=== PATIENT | female | born 1960 | race Asian ===

== ENCOUNTER 2022-09-02 09:37 | Inpatient (IN) | payer MEDICAID, OTHER ==
[~2022-09-02] VITALS: Ht 157.5 cm; Wt 60.4 kg
[2022-09-02 10:47] LABS: Basophils # (auto) 0.1 10 ^3/uL (0-0.2); Basophils % (auto) 0.7 % (0.0-2.0); Eosinophils # (auto) 0.1 10 ^3/uL (0-0.8); Eosinophils % (auto) 0.5 % (0.0-7.0); Hematocrit 40.1 % (36.0-46.0); Hemoglobin 14.1 g/dL (12.2-16.2); Lymphocytes # (auto) 1.9 10 ^3/uL (0.4-5.4); Lymphocytes % (auto) 10.4 % (10.0-50.0); Mean Corpuscular Hemoglobin 31.7 pg (28.0-32.0); Mean Corpuscular Hgb Conc. 35.1 g/dL (32.0-36.0); Mean Corpuscular Volume 90.4 fL (80.0-100.0); Monocytes # (auto) 0.8 10 ^3/uL (0-1.3); Monocytes % (auto) 4.1 % (0.0-12.0); Neutrophils # (auto) 15.7 10 ^3/uL (1.6-8.6); Neutrophils % (auto) 84.3 % (37.0-80.0); Red Blood Cells 4.44 10^6/uL (4.0-5.20); Red Cell Distribution Width 13.1 % (11.8-14.3); White Blood Cell 18.6 10^3/uL (4.4-10.8)
[2022-09-02 11:18] LABS: Albumin 4.3 g/dL (3.4-5.0); Calcium 9.2 mg/dL (8.5-10.1); Potassium 3.9 mmol/L (3.5-5.1)
[2022-09-02 11:22] LABS: BUN/Creatinine Ratio 28.3; Bilirubin, Total 0.5 mg/dL (0.2-1.0); Total Protein 7.6 g/dL (6.4-8.2)
[2022-09-02] MEDS ORDERED: cefTRIAXone 1GM/50ML D5W 50 ML IV ONE (12:45)
[2022-09-02] MEDS ORDERED: SODIUM CHLORIDE 0.9% 1,000 ML IV ONE ×2 (12:45)
[2022-09-02] MEDS ORDERED: metroNIDAZOLE 500MG/100ML 100 ML IV ONE (12:45)
[2022-09-02] MEDS ORDERED: DOCUSATE SOD 100 MG CAP PO PRN (15:15)
[2022-09-02] MEDS ORDERED: ACETAMINOPHEN 325 MG TAB PO PRN (15:15)
[2022-09-02] MEDS ORDERED: HYDROcodone-ACET 5/325MG TAB PO PRN (15:15)
[2022-09-02] MEDS: MORPHINE SULFATE INJ 2 MG/ml SYRG IV PRN ×2 (20:31→23:56)
[2022-09-02] MEDS: metroNIDAZOLE 500MG/100ML 100 ML IV SCH (22:35)
[2022-09-02] MEDS: ONDANSETRON HCL 4 MG/2 ML VIAL IV PRN (23:55)
[2022-09-03] MEDS ORDERED: diphenhdrAMINE HCL 25 MG CAP PO ONE (01:15)
[2022-09-03] MEDS: ONDANSETRON HCL 4 MG/2 ML VIAL IV PRN ×4 (03:42→20:51)
[2022-09-03] MEDS: MORPHINE SULFATE INJ 2 MG/ml SYRG IV PRN ×4 (03:43→20:46)
[2022-09-03 06:31] LABS: Albumin 3.2 g/dL (3.4-5.0); Calcium 7.9 mg/dL (8.5-10.1); Potassium 3.5 mmol/L (3.5-5.1)
[2022-09-03 06:35] LABS: Bilirubin, Total 0.5 mg/dL (0.2-1.0); Total Protein 5.9 g/dL (6.4-8.2)
[2022-09-03] MEDS: metroNIDAZOLE 500MG/100ML 100 ML IV SCH ×2 (06:35→14:08)
[2022-09-03 07:13] LABS: Basophils # (auto) 0 10 ^3/uL (0-0.2); Basophils % (auto) 0.3 % (0.0-2.0); Eosinophils # (auto) 0.2 10 ^3/uL (0-0.8); Eosinophils % (auto) 1.1 % (0.0-7.0); Hematocrit 33.4 % (36.0-46.0); Hemoglobin 11.1 g/dL (12.2-16.2); Lymphocytes # (auto) 4.3 10 ^3/uL (0.4-5.4); Lymphocytes % (auto) 30.9 % (10.0-50.0); Mean Corpuscular Hemoglobin 30.5 pg (28.0-32.0); Mean Corpuscular Hgb Conc. 33.4 g/dL (32.0-36.0); Mean Corpuscular Volume 91.4 fL (80.0-100.0); Monocytes # (auto) 0.9 10 ^3/uL (0-1.3); Monocytes % (auto) 6.5 % (0.0-12.0); Neutrophils # (auto) 8.4 10 ^3/uL (1.6-8.6); Neutrophils % (auto) 61.2 % (37.0-80.0); Nucleated Red Blood Cells % 0.1 %; Red Blood Cells 3.65 10^6/uL (4.0-5.20); Red Cell Distribution Width 13.3 % (11.8-14.3); White Blood Cell 13.8 10^3/uL (4.4-10.8)
[2022-09-03] MEDS ORDERED: PANTOPRAZOLE 40 MG/10 ML VIAL INJ IV SCH (10:00)
[2022-09-03] MEDS ORDERED: SENNA 8.6 MG TAB PO PRN (15:00)
[2022-09-03] MEDS ORDERED: POLYETHYLENE GLYCOL 17 GM PWDR PO PRN (15:00)
[2022-09-03 15:09] VITALS: BP 111/52
[2022-09-03 20:00] VITALS: BP_SYST 124; BP_SYST 143; BP_DIAS 44; BP_DIAS 60
[2022-09-03] MEDS: diphenhdrAMINE HCL 25 MG CAP PO PRN (20:47)
[2022-09-03] MEDS: SENNA 8.6 MG TAB PO SCH (20:47)
[2022-09-03] MEDS: BETAMETHASONE DIPROP0.05% TOPICAL CREAM 15GM TOP SCH (21:09)
[2022-09-03] MEDS: AMOXICILLIN/CLAVUL 875 MG TAB PO SCH (21:12)
[2022-09-03 22:00] VITALS: BP 124/44
[2022-09-04] MEDS: MORPHINE SULFATE INJ 2 MG/ml SYRG IV PRN ×3 (00:55→20:20)
[2022-09-04 03:41] LABS: Urine Bacteria NONE SEEN /hpf (None Seen); Urine Blood TRACE /uL (Negative); Urine Specific Gravity 1.014 (1.001-1.035); Urine WBC 5 /hpf (0 - 5)
[2022-09-04] MEDS: diphenhdrAMINE HCL 25 MG CAP PO PRN ×3 (04:27→22:19)
[2022-09-04 05:00] VITALS: BP 105/39
[2022-09-04 07:24] LABS: Mean Corpuscular Hgb Conc. 35.2 g/dL (32.0-36.0); Mean Corpuscular Volume 90.8 fL (80.0-100.0); Red Blood Cells 3.75 10^6/uL (4.0-5.20); Red Cell Distribution Width 13.1 % (11.8-14.3); White Blood Cell 8.2 10^3/uL (4.4-10.8)
[2022-09-04 07:27] LABS: Basophils % (manual) 0 (0.0-2.0); Blast Cells 0; Metamyelocytes % 0; Myelocytes % 0; Promyelocytes % 0; Reactive Lymphocytes 0
[2022-09-04 07:41] LABS: Albumin 3.3 g/dL (3.4-5.0); Calcium 8.8 mg/dL (8.5-10.1); Potassium 3.8 mmol/L (3.5-5.1)
[2022-09-04 07:43] LABS: BUN/Creatinine Ratio 21.1
[2022-09-04 07:46] LABS: Bilirubin, Total 0.3 mg/dL (0.2-1.0); Total Protein 6.7 g/dL (6.4-8.2)
[2022-09-04 09:00] VITALS: BP 125/43
[2022-09-04] MEDS: AMOXICILLIN/CLAVUL 875 MG TAB PO SCH ×2 (09:59→22:19)
[2022-09-04] MEDS: POLYETHYLENE GLYCOL 17 GM PWDR PO SCH (09:59)
[2022-09-04] MEDS: BETAMETHASONE DIPROP0.05% TOPICAL CREAM 15GM TOP SCH (10:00)
[2022-09-04] MEDS ORDERED: BETA0.0534 EX (11:09)
[2022-09-04] MEDS ORDERED: ACET325T10 PO (11:09)
[2022-09-04] MEDS ORDERED: SENN-83 PO (11:14)
[2022-09-04] MEDS ORDERED: POLY335015 PO (11:14)
[2022-09-04] MEDS ORDERED: AUG875T PO (11:20)
[2022-09-04 13:00] VITALS: BP 138/62
[2022-09-04 15:24] LABS: Band Neutrophils % (manual) 4; Eosinophils % (manual) 1 (0-7); Lymphocytes % (manual) 57 (10.0-50.0); Monocytes % (manual) 6 (0-12)
[2022-09-04 16:44] VITALS: BP 110/51
[2022-09-04 22:00] VITALS: BP 135/62
[2022-09-04] MEDS: SENNA 8.6 MG TAB PO SCH (22:19)
[2022-09-05] MEDS: MORPHINE SULFATE INJ 2 MG/ml SYRG IV PRN ×2 (01:48→08:21)
[2022-09-05 05:00] VITALS: BP 127/52
[2022-09-05 06:11] LABS: Hematocrit 36.2 % (36.0-46.0); Hemoglobin 12.4 g/dL (12.2-16.2); Mean Corpuscular Hemoglobin 31.2 pg (28.0-32.0); Mean Corpuscular Hgb Conc. 34.3 g/dL (32.0-36.0); Mean Corpuscular Volume 91.1 fL (80.0-100.0); Red Blood Cells 3.98 10^6/uL (4.0-5.20); Red Cell Distribution Width 13.3 % (11.8-14.3); White Blood Cell 7.1 10^3/uL (4.4-10.8)
[2022-09-05 06:18] LABS: Band Neutrophils % (manual) 0; Basophils % (manual) 0 (0.0-2.0); Blast Cells 0; Metamyelocytes % 0; Myelocytes % 0; Promyelocytes % 0; Reactive Lymphocytes 0
[2022-09-05 06:32] LABS: Albumin 3.5 g/dL (3.4-5.0); BUN/Creatinine Ratio 19.6; Potassium 3.8 mmol/L (3.5-5.1)
[2022-09-05 06:35] LABS: Bilirubin, Total 0.3 mg/dL (0.2-1.0)
[2022-09-05 07:32] LABS: Eosinophils % (manual) 1 (0-7); Lymphocytes % (manual) 60 (10.0-50.0); Monocytes % (manual) 1 (0-12)
[2022-09-05] MEDS: POLYETHYLENE GLYCOL 17 GM PWDR PO SCH (08:15)
[2022-09-05] MEDS: AMOXICILLIN/CLAVUL 875 MG TAB PO SCH (08:15)
[2022-09-05] MEDS: diphenhdrAMINE HCL 25 MG CAP PO PRN (08:17)
[2022-09-05 09:00] VITALS: BP 133/73
[2022-09-05 11:50] VITALS: BP 133/73
== END 2022-09-05 14:00 | disposition home or self-care (01) | DRG 254 ==
LOC: EDBD 09:37 → ER 09:37 → OVERFLOW 15:34 → EAST 09-03 14:58 → CENTRAL 09-03 18:19
PROVIDERS: ADMIT Nurse Practitioner Family; ATTEND Student in an Organized Health Care Education/Training Program
DX: K59.03 Drug induced constipation (principal); D72.829 Elevated white blood cell count, unspecified; T50.905A Adverse effect of unspecified drugs, medicaments and biological substances, initial encounter; K64.9 Unspecified hemorrhoids; L25.9 Unspecified contact dermatitis, unspecified cause; Z20.822 Contact with and (suspected) exposure to COVID-19; Z82.49 Family history of ischemic heart disease and other diseases of the circulatory system; Z85.6 Personal history of leukemia; Z86.73 Personal history of transient ischemic attack (TIA), and cerebral infarction without residual deficits; Y92.89 Other specified places as the place of occurrence of the external cause
CPT/HCPCS: 36415; 74176; 80053; 81001; 83690; 85007; 85025; 85027; 87081; 87426; 96365; 96367; C9113; G0378; J0696; J2405; J3490

== ENCOUNTER 2022-11-29 11:47 | Emergency (ER) | payer MEDICAID, OTHER ==
[~2022-11-29] VITALS: Ht 160 cm; Wt 61.2 kg
[~2022-11-29 11:47] MED LIST: ACET325T10 PO; AUG875T PO; BETA0.0534 EX; POLY335015 PO; SENN-83 PO
[2022-11-29 13:15] VITALS: BP 146/60
== END 2022-11-29 13:31 | disposition home or self-care (01) ==
LOC: ER 11:47
DX: S11.91XD Laceration without foreign body of unspecified part of neck, subsequent encounter (principal); X58.XXXD Exposure to other specified factors, subsequent encounter

== ENCOUNTER 2025-04-14 10:08 | Day surgery (SDC) | payer MEDICAID ==
[~2025-04-14] VITALS: Ht 160 cm; Wt 68.9 kg
[~2025-04-14 10:08] MED LIST changes: +ACET-1882 PO; -ACET325T10 PO; -AUG875T PO; +CLON0.5T3 PO; +FAMO-68 PO; +GABA-1250 PO; +LACT10SO3 PO; +MECL1TAB42 PO; +METF-370 PO; +PROP60CA34 PO; +ROSU40TA81 PO; +SENN-105 PO; -SENN-83 PO; +SERT100T PO; +TEMA15CA2 PO
--- NOTE | 2025-04-14 13:20 | DVHHP2 ---
GI H&P Pre-Op Assessment Date: 04/14/25 Chief complaint: colon cancer screening, nausea, vomiting, bloating HPI: per clinic note Past medical history: per clinic note Past surgical history: per clinic note Family history: per clinic note Physical exam: General: NAD, AAOX3 HEENT: PERRL, no scleral icterus, normal hearing, gums without lesions or bleeding, oropharynx clear without erythema or exudate. Neck: Supple without enlargement of the thyroid, or lymphadenopathy. Chest: Normal size and shape, no tenderness, lung hardy clear to auscultation and percussion, nonlabored breathing. Heart: RRR, no murmur Abdomen: non-distended, no tenderness to palpation, +BS, no hepatosplenomegaly Extremities: no edema Neurological: CN II-XII intact, sensation intact in all extremities, 5+ strength in all extremities Skin: No rashes, No jaundice Assessment: - colon cancer screening - nausea, vomiting, bloating Plan: - EGD - Colonoscopy - Risks (bleeding, infection, perforation, reaction to sedation medications and cardiopulmonary arrest) and benefit of the procedure were explained to patient. Patient agrees to undergo the procedure. RABIA CORRAL MD Apr 14, 2025 13:20
[2025-04-14] MEDS ORDERED: fentaNYL CITRATE 100 MCG/2 ML VL ONE (13:27)
[2025-04-14] MEDS ORDERED: PROPOFOL 10 MG/ML 20 ML IV ONE (13:27)
[2025-04-14 13:58] VITALS: PULSE 78; RESP 20; TEMP 97.3; O2SAT 97
--- NOTE | 2025-04-14 14:00 | DVHOP2 ---
Operative Report DATE OF OPERATION: 04/14/25 PROCEDURE: Upper Endoscopy. PREOPERATIVE INDICATION: The patient is a 64 -year-old female undergoing endoscopy for nausea, vomiting, bloating. POSTOPERATIVE DIAGNOSES: 1. Slight duodenitis in the bulb. 2. Mild gastritis PROCEDURE PERFORMED BY: Festus [place] SCOPE: Olympus videoendoscope. ASA CLASS: 3 PREOPERATIVE MEDICATIONS: MAC with Dr Nickerson PROCEDURE IN DETAIL: After obtaining an informed consent, the patient was placed on her back. The patient was then sedated with the above medications. A bite block was placed between her teeth. The endoscope was then passed through the oropharynx, into the esophagus, and through the stomach and pylorus up to the second and third part of the duodenum. There was slight duodenitis in the duodenal bulb. There was mild gastritis. Gastric biopsies were obtained using cold forceps. The GE junction was normal in appearance at 33 cm. The esophagus was normal in appearance. The endoscope was then withdrawn. The patient tolerated the procedure well without difficulty. COMPLICATIONS : None SPECIMENS: Gastric biopsies DISPOSITION: D/C to home PLAN: 1. Await for biopsy result FESTUS BAY MD Apr 14, 2025 14:00
--- NOTE | 2025-04-14 14:02 | DVHOP2 ---
Operative Report DATE OF OPERATION: 04/14/25 PROCEDURE: Colonoscopy. PREOPERATIVE INDICATION: The patient is a 64 -year-old female undergoing colonoscopy for screening. POSTOPERATIVE DIAGNOSES: 1. 1 cm flat cecal polyp was injected with polyp lift and removed with hot snare. It was retrieved. 2. Two transverse colon polyps ( 2 mm, 3 mm) were removed with cold biopsy forceps. PROCEDURE PERFORMED BY: Festus Bay M.D. SCOPE: Olympus videocolonoscope. ASA CLASS: 3 PREOPERATIVE MEDICATIONS: MAC with Dr Nickerson PROCEDURE IN DETAIL: After obtaining an informed consent, the patient was plac ed on left lateral decubitus position. She was then sedated with the above medications. A rectal examination was performed that was normal. The colonoscope was then passed through the anus into the rectosigmoid and through the descending, transverse, and ascending colon up to the cecum with visualization of the appendiceal orifice, base of the cecum and the ileocecal valve. A 1 cm flat cecal polyp was injected with polyp lift and removed with hot snare. It was retrieved. Two transverse colon polyps ( 2 mm, 3 mm) were removed with cold biopsy forceps. The colonoscope was then withdrawn. The patient tolerated the procedure well without difficulty. WITHDRAWAL TIME: 14 Minutes QUALITY OF THE PREP: [place] Bowel Prep score: 6 COMPLICATIONS : None SPECIMENS: Colon polyps DISPOSITION: D/C to home PLAN: 1. Repeat colonoscopy base on biopsy result FESTUS BAY MD Apr 14, 2025 14:02
--- NOTE | 2025-04-14 14:03 | DVHDS2 ---
Physician Discharge Progress N Final Diagnosis: Duodenitis, gastritis Colon polyps Operations or Procedures: Operations or Procedures EGD with cold biopsy Colonoscopy with cold biopsy polypectomy, injection, hot snare polypectomy Condition on Discharge: Good Disposition: Home Discharge Instructions: Diet: Regular Activity: No Restrictions, As Tolerated Medications: Resume with previous home medications Follow Up Care: Discharge Statement: "Patient was advised to return to the ER or call 911 if any headaches, dizziness, shortness of breath, chest pain, abdominal pain, bleeding, fevers, or worsening of medical condition. Patient was counseled about treatment plan, medications, possible side effects, patientverbalized understanding. All questions were answered to the best of my ability. This discharge took greater then 30 minutes in planning, reviewing documentation, counseling the patient, and discussing with other team members." RABIA CORRAL MD Apr 14, 2025 14:03
[2025-04-14 14:20] VITALS: BP 117/61; PULSE 75; RESP 21; O2SAT 9
== END 2025-04-14 15:50 | disposition home or self-care (01) ==
LOC: GI 10:08
PROVIDERS: ATTEND Internal Medicine Gastroenterology
DX: R11.2 Nausea with vomiting, unspecified (principal); K29.50 Unspecified chronic gastritis without bleeding; D12.0 Benign neoplasm of cecum; D12.3 Benign neoplasm of transverse colon; K29.80 Duodenitis without bleeding; E11.9 Type 2 diabetes mellitus without complications; F41.9 Anxiety disorder, unspecified; K21.9 Gastro-esophageal reflux disease without esophagitis; F17.210 Nicotine dependence, cigarettes, uncomplicated; Z91.09 Other allergy status, other than to drugs and biological substances; Z79.899 Other long term (current) drug therapy; Z79.84 Long term (current) use of oral hypoglycemic drugs
CPT/HCPCS: 43239; 45380; 45381; 45385; 82962; 88305; 88342; J2704; J3010; J7030

== ENCOUNTER 2025-05-10 23:48 | Emergency (ER) | payer MEDICAID ==
[~2025-05-10] VITALS: Ht 160 cm; Wt 68.2 kg
[2025-05-11 00:23] VITALS: TEMP 98.3
[2025-05-11 00:27] VITALS: PULSE 71; O2SAT 96
--- NOTE | 2025-05-11 00:32 | ECG ---
[facility] Test Date: 2025-05-11 Test Time: 00:23:47 Pat Name: MADAN WU Department: Room: Gender: F [employer] Operator: BRANNON : 1960 Requested By: ALIN HUTSON Order Number: [id number] Reading MD: Measurements Intervals [place] Rate: 69 P: 51 VT: 184 QRS: 42 QRSD: 87 T: 36 QT: 433 QTc: 464 Interpretive Statements Sinus rhythm Please click the below link to view image of tracing.
[2025-05-11 01:00] LABS: Hematocrit 42.8 % (36.0-46.0); Hemoglobin 14.4 g/dL (12.2-16.2); Mean Corpuscular Hemoglobin 30.4 pg (28.0-32.0); Mean Corpuscular Volume 90.7 fL (80.0-100.0); Nucleated Red Blood Cells % 0.0 %
[2025-05-11] MEDS: HYDROmorphone HCL 2 MG/ML VL/or syr IV ONE (01:02)
[2025-05-11] MEDS: IOHEXOL 300 MG/ML 100ML BOTTLE IJ ONE (01:03)
[2025-05-11] MEDS: ONDANSETRON HCL 4 MG/2 ML VIAL IV ONE (01:06)
--- NOTE | 2025-05-11 01:09 | ED.PDOC ---
History of Present Illness HPI Comments 64-year-old female who presents to the emergency department with abdominal pain. She reports the pain started 1 day ago. It is on the left side of her abdomen. Radiates to the right side of her abdomen and the mid back. Pain initially was off and on it became worse prior to arrival. She received 100 mcg of fentanyl by EMS which improved with the pain from 10/10 to 8/10 in severity. She reports she feels her abdomen is distended. No associated nausea, vomiting, diarrhea, constipation, UTI symptoms, or chills. Past medical history includes diabetes mellitus and recent neck surgery. REVIEW OF SYSTEMS: General: + fever, no chills, or fatigue HEENT: No sore throat, no earache, no congestion, no neck pain. Cardiac: No chest pain. No palpitations. Lungs: No shortness of breath, no cough. GI: No nausea, no vomiting, no diarrhea, no constipation,+ abdominal pain : No dysuria, frequency, or urgency. No hematuria. Musculoskeletal: No joint pain , no joint swelling, no extremity edema. Skin: No rash, no itching. Neuro: No headache, no dizziness, no weakness (And as sated in HPI) PHYSICAL EXAM: General: Awake, alert and oriented. No acute distress. Skin: Skin in warm, dry and intact. Appropriate color for ethnicity. HEENT: The head is normocephalic and atraumatic. Conjunctivae are clear without exudates or hemorrhage. Sclera is non-icteric. Eyelids are normal in appearance without swelling or lesions. Oral mucosa is pink and moist Neck: The neck is supple with normal range of motion. No JVD. Cardiac: Heart rate and rhythm are normal. No murmurs, gallops, or rubs are auscultated. Respiratory: No signs of respiratory distress. Lung sounds are clear in all lobes bilaterally without rales, rhonchi, or wheezes. Abdominal: Abdomen is soft, generally tender, without distention, guarding or rigidity. Bowel sounds are present and normoactive in all four quadrants. Extremities: Upper and lower extremities are atraumatic in appearance without deformity or edema. Neurological: The patient is awake, alert and oriented to person, place, and time with normal speech. Speech is clear. There is no facial asymmetry. Psychiatric: Appropriate mood and affect. Good judgement and insight. Chief Complaint: Abdominal Pain Time Seen by MD: 23:54 Primary Care Provider: UNKNOWN Allergies: Uncoded Allergies: tape, adhesive (Allergy, Mild, 09/03/22) Home Meds Active Scripts Polyethylene Glycol 3350 (Miralax) 17 Gm Pow, 17 GM PO DAILY PRN for 30 Days, #30 POW Prov:INNA SMITH MD 09/04/22 Polyethylene Glycol 3350 (Miralax) 17 Gm Pow, 17 GM PO DAILY for 30 Days, #30 POW Prov:INNA SMITH MD 09/04/22 Senna (Senna) 8.6 Mg Tab, 8.6 MG PO QHSP PRN for 30 Days, #30 TAB Prov:INNA SMITH MD 09/04/22 Betamethasone Dipropionate (Betamethasone Dipropionat) 0.05 % Oin, 0.05 % EX BID for 10 Days, #1 OIN Prov:INNA SMITH MD 09/04/22 Acetaminophen (Acetaminophen) 325 Mg Tab, 1000 MG PO TID for 10 Days, #93 TAB Please provide liquid form Prov:INNA SMITH MD 09/04/22 Reported Medications Temazepam (Restoril) 15 Mg Cp, 15 MG PO HS, CAP 04/13/25 Sertraline Hcl (Zoloft) 100 Mg Tab, 150 MG PO DAILY@BREAKFAST, TAB 04/13/25 Rosuvastatin Calcium (Crestor) 40 Mg Tab, 40 MG PO DAILY, TAB 04/13/25 Propranolol Hcl (Inderal La) 60 Mg Cap, 10 MG PO TID, CAP 04/13/25 Metformin Hydrochloride (Metformin Hcl) 500 Mg Tab, 500 MG PO BID, TAB 04/13/25 Meclizine HCl (Meclizine 25) 25 Mg Tab, 25 MG PO BID, TAB 04/13/25 Lactulose (Lactulose) 10 Gm/15 Ml Kim, 15 ML PO HS, ML 04/13/25 Gabapentin (Gabapentin) 300 Mg Cap, 300 MG PO HS, CAP 04/13/25 Famotidine (Gnp Acid Dog Barber Maximum) 20 Mg Tab, 40 MG PO HS, TAB 04/13/25 Clonazepam (KlonoPIN TABLET) 0.5 Mg Tb, 0.5 MG PO BID, TAB 04/13/25 Mode of Arrival: EMS Past Medical History PAST MEDICAL HISTORY: Denies DIRECTOR OF ONLINE MERCHANDISING History: No Pertinent DIRECTOR OF ONLINE MERCHANDISING History Family History Family History: Reviewed,noncontributory to illness Social History Smoker: Non-Smoker Alcohol: Denies ETOH Use Drugs: Denies Drug Use Lives In: Home Was a procedure done? Was a procedure done?: No EKG EKG : Comments Sinus rhythm, rate 69, no STEMI Differential Dx Considerations may include: Differential diagnoses considered include: Abdominal aortic aneurysm, DC, esophageal rupture, intestinal obstruction, mesenteric ischemia, perforated viscus or solid organ rupture, CHF with hepatomegaly, pneumonia, abscess, appendicitis, biliary disease, diverticulitis, gastritis, gastroenteritis, hepatitis, hernia, inflammatory bowel disease, pancreatitis, peptic ulcer disease, urinary tract infection, ureteral colic, constipation, GERD, irritable syndrome, abdominal wall pain, nonspecific abdominal pain, herpes zoster, nephrolithiasis. X-Ray, Labs, Meds, VS Vital Signs Date Time Temp Pulse Resp B/P (MAP) Pulse Ox O2 Delivery O2 Flow Rate FiO2 05/11/25 02:00 60 16 135/57 (83) 94 05/11/25 01:02 71 18 169/76 05/11/25 00:27 71 96 Room Air* 0 21 05/11/25 00:23 98.3 71 18 169/76 (107) 96 98.3 05/11/25 00:23 69 05/10/25 23:59 97.8 74 20 171/75 99 97.8 Lab Test 05/11/25 00:47 Range/Units White Blood Count 11.1 H 4.4-10.8 10^3/uL Red Blood Count 4.72 4.0-5.20 10^6/uL Hemoglobin 14.4 12.2-16.2 g/dL Hematocrit 42.8 36.0-46.0 % Mean Corpuscular Volume 90.7 80.0-100.0 fL Mean Corpuscular Hemoglobin 30.4 28.0-32.0 pg Mean Corpuscular Hemoglobin Concent 33.5 32.0-36.0 g/dL Red Cell Distribution Width 13.3 11.8-14.3 % Platelet Count 372 140-450 10^3/uL Mean Platelet Volume 6.5 L 6.9-10.8 fL Neutrophils (%) (Auto) 63.7 37.0-80.0 % Lymphocytes (%) (Auto) 29.3 10.0-50.0 % Monocytes (%) (Auto) 4.2 0.0-12.0 % Eosinophils (%) (Auto) 2.2 0.0-7.0 % Basophils (%) (Auto) 0.6 0.0-2.0 % Neutrophils # (Auto) 7.1 1.6-8.6 10 ^3/uL Lymphocytes # (Auto) 3.3 0.4-5.4 10 ^3/uL Monocytes # (Auto) 0.5 0-1.3 10 ^3/uL Eosinophils # (Auto) 0.2 0-0.8 10 ^3/uL Basophils # (Auto) 0.1 0-0.2 10 ^3/uL Nucleated Red Blood Cells 0.0 % Sodium Level 139 136-145 mmol/L Potassium Level 3.6 3.5-5.1 mmol/L Chloride Level 110 H 98-107 mmol/L Carbon Dioxide Level 21 20-31 mmol/L Anion Gap 8 5-15 Blood Urea Nitrogen 10 9-23 mg/dL Creatinine 0.58 0.550-1.02 mg/dL Glomerular Filtration Rate Calc 100 >90 mL/min BUN/Creatinine Ratio 17.2 10.0-20.0 Serum Glucose 126 H 74-106 mg/dL Lactic Acid Level 1.2 0.4-2.0 mmol/L Calcium Level 9.2 8.7-10.4 mg/dL Total Bilirubin 0.5 0.2-1.0 mg/dL Aspartate Amino Transferase (AST) 26 13-40 U/L Alanine Aminotransferase (ALT) 29 7-40 U/L Alkaline Phosphatase 104 46-116 U/L Total Protein 7.6 5.7-8.2 g/dL Albumin 4.7 3.2-4.8 g/dL Lipase 38 12-53 U/L Current Medications Medications (Trade) Dose Ordered Sig/Micheal Route Start Time Stop Time Status Last Admin Hydromorphone HCl (Dilaudid Injection) 0.5 mg ONCE ONCE IV 05/11/25 00:45 05/11/25 00:46 DC 05/11/25 01:02 Ondansetron HCl (Zofran) 4 mg ONCE ONCE IV 05/11/25 00:45 05/11/25 00:46 DC 05/11/25 02:35 PATIENT: SANGEETA WU: [id number]: [id number] : 1960 LOC: ER ROOM / BED: / AGE / SEX: 64 / F ADM STATUS: REG ER SERVICE [id number] ORDERING PHYSICIAN: ALIN HUTSON MD PROCEDURE(s): ABPLIV - CT AB PEL WITH IV CON ONLY REASON: Left-sided abdominal pain ORDER NUMBER(s): [id number], ACCESSION NUMBER(s): [id number] Exam: CT CT AB PEL WITH IV CON ONLY History: Left-sided abdominal pain COMPARISON: US PELVIC TRANSABDOMINAL ONLY on DOS: 01/26/24, CT ABD PELVIS WO CONTRAST on DOS: 09/02/22 Technique: Multidetector spiral CT of the abdomen and pelvis was performed from lung bases to pubic symphysis. Intravenous contrast was administered during this examination. Portal venous imaging was obtained. Axial, coronal and sagittal multiplanar reformats were performed by the technologist on a separate workstation. Radiation Dose : 1. Abdomen/Pelvis: CTDIvol 10.28mGy, DLP 569.57 mGy*cm. CONTRAST: Type of contrast: Omnipaque 300 Contrast injected: 100 ml Findings: Lung Bases: No acute or significant lung base finding. Moderate right basilar atelectasis. Cardiomegaly. No pleural or pericardial effusion. Liver: The liver is steatotic and enlarged, measuring 19.7 cm in craniocaudal dimension. No focal lesions. Normal hepatic vascular enhancement. Gallbladder and Biliary Tree: Unremarkable Spleen: Unremarkable Pancreas: The pancreas is normal in appearance without focal lesions or abnormal enhancement. Adrenal Glands: Unremarkable Kidneys: No hydronephrosis. Bladder: Unremarkable Bowel: The stomach is grossly normal in appearance. Small bowel and colon are normal in caliber and distribution. The appendix is not visualized; however, no secondary findings of acute appendicitis identified. Ascites: Absent Lymphadenopathy: No mesenteric, retroperitoneal or periportal lymphadenopathy. Abdominal Wall and Mesentery: Unremarkable. Vasculature: The visualized abdominal aorta is normal in size and caliber. Atherosclerotic vascular calcifications. Abdominal and pelvic vessels demonstrate normal enhancement. Pelvic Organs: Unremarkable Musculoskeletal: No aggressive focal bony lesions, acute fractures or dislocation. IMPRESSION: 1. No acute abdominal or pelvic finding. 2. Hepatomegaly and hepatic steatosis. 3. Cardiomegaly. Radiation optimization: All CT scans at this facility use at least one of these dose optimization techniques: automated exposure control mA and/or kV adjustment per patient size (includes targeted exams where dose is matched to cl inical indication) or iterative reconstruction. Time of 1ST Reevaluation: 01:08 Reevaluation 1ST: Unchanged Patient Education/Counseling: Need For Follow Up Family Education/Counseling: No Family Present SEPSIS Sepsis Screen Date sepsis recognized/suspect: May 11, 2025 Time Sepsis recognized/suspect: 0020 Recent Procedure: No On Antibiotic Therapy: No Respiratory Rate >20: No Heart Rate >90: No Temp<36 C (96.8 F) or >38.3 C: No SBP <90 or MAP <65 mmHG: No New Acute Mental Status Change: No Is the patient on CPAP, BIPAP,: No Physician Orders Urinalysis (05/11/25 00:33) Ct Ab Pel With Iv Con Only (05/11/25 00:33) Vital Signs Date Time Temp Pulse Resp B/P (MAP) Pulse Ox O2 Delivery O2 Flow Rate FiO2 05/11/25 02:00 60 16 135/57 (83) 94 05/11/25 01:02 71 18 169/76 05/11/25 00:27 71 96 Room Air* 0 21 05/11/25 00:23 98.3 71 18 169/76 (107) 96 98.3 05/11/25 00:23 69 05/10/25 23:59 97.8 74 20 171/75 99 97.8 Laboratory Tests Test 05/11/25 00:47 Lactic Acid Level 1.2 mmol/L (0.4-2.0) White Blood Count 11.1 10^3/uL (4.4-10.8) H Medications Medications Dose Ordered Sig/Micheal Route Start Time Stop Time Status Last Admin Dose Admin Hydromorphone HCl 0.5 mg ONCE ONCE IV 05/11/25 00:45 05/11/25 00:46 DC 05/11/25 01:02 Ondansetron HCl 4 mg ONCE ONCE IV 05/11/25 00:45 05/11/25 00:46 DC 05/11/25 02:35 Departure 1 Departure Time of Disposition: 02:37 Impression: Primary Impression: Acute abdominal pain Disposition: 01 HOME / SELF CARE / HOMELESS Condition: Stable Additional Instructions: ED DISCHARGE INSTRUCTIONS Instructions: Please read all instructions provided in this packet carefully. Although you have been discharged from the Emergency Department, this does not mean that you have a "clean bill of health". No definitive diagnosis for your symptoms has been made today. It is possible that you are in the process of developing a serious illness. This is why you must return to the ED without fail if any new or worsening symptoms (especially if your symptoms include chest pain, trouble breathing, abdominal pain, fever, headache, confusion, trouble seeing, or trouble walking) It is also very important that you see a primary care provider (PCP) within the next 3-5 days to follow up. If you are unable to get an appointment, return to the ED for re-evaluation. Abdominal Pain: Care Instructions Overview Abdominal pain has many possible causes. Some aren't serious and get better on their own in a few days. Others need more testing and treatment. If your pain continues or gets worse, you need to be rechecked and may need more tests to find out what is wrong. You may need surgery to correct the problem. Don't ignore new symptoms, such as fever, nausea and vomiting, urination problems, pain that gets worse, and dizziness. These may be signs of a more serious problem. If you are not getting better, you may need more tests or treatment. The doctor has checked you carefully, but problems can develop later. If you notice any problems or new symptoms, get medical treatment right away. Follow-up care is a correa part of your treatment and safety. Be sure to make and go to all appointments, and call your doctor if you are having problems. It's also a good idea to know your test results and keep a list of the medicines you take. How can you care for yourself at home? Rest until you feel better. To prevent dehydration, drink plenty of fluids. Choose water and other clear liquids until you feel better. If you have kidney, heart, or liver disease and have to limit fluids, talk with your doctor before you increase the amount of fluids you drink. When you feel like eating, start with small amounts. Do not have alcohol, ca ffeine, or spicy, hot, or high-fat foods for a day or two. Avoid anti-inflammatory medicines such as aspirin, ibuprofen (Advil, Motrin), and naproxen (Aleve). These can cause stomach upset. Talk to your doctor if you take daily aspirin for another health problem. When should you call for help? Call 911 anytime you think you may need emergency care. For example, call if: You passed out (lost consciousness). You pass maroon or very bloody stools. You vomit blood or what looks like coffee grounds. You have severe belly pain. Call your doctor now or seek immediate medical care if: Your pain gets worse, especially if it becomes focused in one area of your belly. You have a new or higher fever. Your stools are black and look like tar, or they have streaks of blood. You have unexpected vaginal bleeding. You have symptoms of a urinary tract infection. These may include: Pain when you urinate. Urinating more often than usual. Blood in your urine. You are dizzy or lightheaded, or you feel like you may faint. Watch closely for changes in your health, and be sure to contact your doctor if: You are not getting better as expected. Credits for Abdominal Pain: Care Instructions Current as of: May 01, 2023 Author: [email or web address], [employer] Clinical Review Board All [employer] education is reviewed by a team that includes physicians, nurses, advanced practitioners, registered dieticians, and other healthcare professionals. Comments MDM: 64-year-old female presented with abdominal pain. No peritoneal signs on abdominal exam. No evidence of acute abdomen at this time. patient is well appearing. Labs show no leukocytosis or elevation of LFTs. Imaging shows no acute process. Patient is afebrile. Patient is not hypotensive. Low suspicion for acute hepatobiliary disease (including acute cholecystitis, acute pancreatitis, PUD (including perforation), acute infectious process (pneumonia, hepatitis, pyelonephritis), acute appendicitis, vascular catastrophe, bowel obstructions, viscous perforation. Presentation not consistent with other acute, emergent causes of abdominal pain at this time. Patient's pain improved prior to discharge. Patient well-appearing, nontoxic. Advised prompt follow-up with PCP, return to the ED with any new, worsening or concerning symptoms. I reviewed the following notes from the pt's past medical encounters: N/A The following tests were ordered, and results were reviewed by me: (See diagnostic results section) The following test were independently interpreted by me: N/A Additional information was gathered from interviewing the following independent historians: EMS personnel, patient's evaluation assistant I reviewed and agreed with the following test results read by other providers: N/A I discussed treatments and results with patient Decision regarding hospitalization or escalation of hospital level of care: Risks and benefits of admission for further treatment of patient's condition was considered however due to patient's stable condition patient will be discharged to follow up closely or return to care for worsening of condition or inability to follow up. Critical Care Note Critical Care Time?: No Stability Stability form required: No Heart Score Heart Score: Heart Score Response (Comments) Value History N/A 0 EKG N/A 0 Age N/A 0 Risk Factors N/A 0 Troponin N/A 0 Total 0 ALIN HUTSON MD May 11, 2025 01:09
[2025-05-11 01:16] LABS: Alanine Aminotransferase 29 U/L (7-40); Alkaline Phosphatase 104 U/L (46-116); Anion Gap 8 (5-15); BUN/Creatinine Ratio 17.2 (10.0-20.0); Blood Urea Nitrogen 10 mg/dL (9-23); Calcium 9.2 mg/dL (8.7-10.4); Carbon Dioxide 21 mmol/L (20-31); Lipase 38 U/L (12-53); Potassium 3.6 mmol/L (3.5-5.1); Sodium 139 mmol/L (136-145); Total Protein 7.6 g/dL (5.7-8.2)
[2025-05-11 01:17] LABS: Albumin 4.7 g/dL (3.2-4.8); Bilirubin, Total 0.5 mg/dL (0.2-1.0)
[2025-05-11 01:25] LABS: Chloride 110 mmol/L (98-107); Glucose 126 mg/dL (74-106)
[2025-05-11 02:00] VITALS: PULSE 60; RESP 16; O2SAT 94
--- NOTE | 2025-05-11 02:00 | DVH ---
Exam: CT CT AB PEL WITH IV CON ONLY History: Left-sided abdominal pain COMPARISON: US PELVIC TRANSABDOMINAL ONLY on DOS: 01/26/24, CT ABD PELVIS WO CONTRAST on DOS: 09/02/22 Technique: Multidetector spiral CT of the abdomen and pelvis was performed from lung bases to pubic s ymphysis. Intravenous contrast was administered during this examination. Portal venous imaging was o btained. Axial, coronal and sagittal multiplanar reformats were performed by the technologist on a [employer] workstation. Radiation Dose : 1. Abdomen/Pelvis: CTDIvol 10.28mGy, DLP 569.57 mGy*cm. CONTRAST: Type of contrast: Omnipaque 300 Contrast injected: 100 ml Findings: Lung Bases: No acute or significant lung base finding. Moderate right basilar atelectasis. Cardiomega ly. No pleural or pericardial effusion. Liver: The liver is steatotic and enlarged, measuring 19.7 cm in craniocaudal dimension. No focal le sions. Normal hepatic vascular enhancement. Gallbladder and Biliary Tree: Unremarkable Spleen: Unremarkable Pancreas: The pancreas is normal in appearance without focal lesions or abnormal enhancement. Adrenal Glands: Unremarkable Kidneys: No hydronephrosis. Bladder: Unremarkable Bowel: The stomach is grossly normal in appearance. Small bowel and colon are normal in caliber and d istribution. The appendix is not visualized; however, no secondary findings of acute appendicitis raza ntified. Ascites: Absent Lymphadenopathy: No mesenteric, retroperitoneal or periportal lymphadenopathy. Abdominal Wall and Mesentery: Unremarkable. Vasculature: The visualized abdominal aorta is normal in size and caliber. Atherosclerotic vascular c alcifications. Abdominal and pelvic vessels demonstrate normal enhancement. Pelvic Organs: Unremarkable Musculoskeletal: No aggressive focal bony lesions, acute fractures or dislocation. IMPRESSION: 1. No acute abdominal or pelvic finding. 2. Hepatomegaly and hepatic steatosis. 3. Cardiomegaly. Radiation optimization: All CT scans at this facility use at least one of these dose optimization david hniques: automated exposure control mA and/or kV adjustment per patient size (includes targeted exam s where dose is matched to clinical indication) or iterative reconstruction.
[2025-05-11 04:30] VITALS: BP 137/61
== END 2025-05-11 04:29 | disposition home or self-care (01) ==
LOC: EDBD 23:48 → ER 23:48
DX: R10.9 Unspecified abdominal pain (principal); E11.9 Type 2 diabetes mellitus without complications; Z91.048 Other nonmedicinal substance allergy status; Z79.899 Other long term (current) drug therapy; Z79.84 Long term (current) use of oral hypoglycemic drugs
CPT/HCPCS: 36415; 74177; 80053; 83605; 83690; 85025; 93005; 96374; 96375; 99285; J1171; J2405; Q9967

== ENCOUNTER 2025-05-11 15:34 | Emergency (ER) | payer MEDICAID ==
[~2025-05-11] VITALS: Ht 152.4 cm; Wt 73.0 kg
--- NOTE | 2025-05-11 15:45 | ED.PDOC ---
History of Present Illness HPI Comments 54-year-old female brought in by ambulance with a chief complaint of abdominal pain. Patient was here last night but came back for similar symptoms hears the HPI from last night 64-year-old female who presents to the emergency department with abdominal pain. She reports the pain started 1 day ago. It is on the left side of her abdomen. Radiates to the right side of her abdomen and the mid back. Pain initially was off and on it became worse prior to arrival. She received 100 mcg of fentanyl by EMS which improved with the pain from 10/10 to 8/10 in severity. She reports she feels her abdomen is distended. No associated nausea, vomiting, diarrhea, constipation, UTI symptoms, or chills. Past medical history includes diabetes mellitus and recent neck surgery.. Patient came back today due from having worsening abdominal pain. Chief Complaint: Abdominal Pain Time Seen by MD: 15:45 Primary Care Provider: UNKNOWN Reviewed Notes: Nurses Notes, Medications, Allergies Allergies: Uncoded Allergies: tape, adhesive (Allergy, Mild, 09/03/22) Home Meds Active Scripts Polyethylene Glycol 3350 (Miralax) 17 Gm Pow, 17 GM PO DAILY PRN for 30 Days, #30 POW Prov:INNA SMITH MD 09/04/22 Polyethylene Glycol 3350 (Miralax) 17 Gm Pow, 17 GM PO DAILY for 30 Days, #30 POW Prov:INNA SMITH MD 09/04/22 Senna (Senna) 8.6 Mg Tab, 8.6 MG PO QHSP PRN for 30 Days, #30 TAB Prov:INNA SMITH MD 09/04/22 Betamethasone Dipropionate (Betamethasone Dipropionat) 0.05 % Oin, 0.05 % EX BID for 10 Days, #1 OIN Prov:INNA SMITH MD 09/04/22 Acetaminophen (Acetaminophen) 325 Mg Tab, 1000 MG PO TID for 10 Days, #93 TAB Please provide liquid form Prov:INNA SMITH MD 09/04/22 Reported Medications Temazepam (Restoril) 15 Mg Cp, 15 MG PO HS, CAP 04/13/25 Sertraline Hcl (Zoloft) 100 Mg Tab, 150 MG PO DAILY@BREAKFAST, TAB 04/13/25 Rosuvastatin Calcium (Crestor) 40 Mg Tab, 40 MG PO DAILY, TAB 04/13/25 Propranolol Hcl (Inderal La) 60 Mg Cap, 10 MG PO TID, CAP 04/13/25 Metformin Hydrochloride (Metformin Hcl) 500 Mg Tab, 500 MG PO BID, TAB 04/13/25 Meclizine HCl (Meclizine 25) 25 Mg Tab, 25 MG PO BID, TAB 04/13/25 Lactulose (Lactulose) 10 Gm/15 Ml Kim, 15 ML PO HS, ML 04/13/25 Gabapentin (Gabapentin) 300 Mg Cap, 300 MG PO HS, CAP 04/13/25 Famotidine (Gnp Acid Cosmetology Instructor Maximum) 20 Mg Tab, 40 MG PO HS, TAB 04/13/25 Clonazepam (KlonoPIN TABLET) 0.5 Mg Tb, 0.5 MG PO BID, TAB 04/13/25 Information Source: Patient Severity: Moderate Timing: Hours Duration: Since onset, Hours Prehospital treatment: None Past Medical History PAST MEDICAL HISTORY: Denies Surgical History: Denies all surgeries SAUSAGE TIER History: No Pertinent SAUSAGE TIER History Family History Family History: Reviewed,noncontributory to illness, Unknown Social History Smoker: Non-Smoker Alcohol: Denies ETOH Use Drugs: Denies Drug Use Lives In: Home Constitutional: denies: chills, diaphoresis, fatigue, fever, malaise, sweats, weakness, others EENTM: denies: blurred vision, double vision, ear bleeding, ear discharge, ear drainage, ear pain, ear ringing, eye pain, eye redness, hearing loss, mouth pain, mouth swelling, nasal discharge, nose bleeding, nose congestion, nose pain, photophobia, tearing, throat pain, throat swelling, voice changes, others Respiratory: denies: cough, hemoptysis, orthopnea, SOB at rest, shortness of breath, SOB with excertion, stridor, wheezing, others Cardiovascular: denies: chest pain, dizzy spells, diaphoresis, Dyspnea on exertion, edema, irregular heart beat, left arm pain, lightheadedness, palpitati ons, PND, syncope, others Gastrointestinal: reports: abdominal pain; denies: abdomen distended, blood streaked bowels, constipated, diarrhea, dysphagia, difficulty swallowing, hematemesis, melena, nausea, poor appetite, poor fluid intake, rectal bleeding, rectal pain, vomiting, others Genitourinary: denies: abnormal vagina bleeding, burning, dyspareunia, dysuria, flank pain, frequency, hematuria, incontinence, pain, , vagina discharge, urgency, others Neurological: denies: dizziness, fainting, headache, left sided numbness, left sided weakness, numbness, paresthesia, pre-existing deficit, right sided numbness, right sided weakness, seizure, speech problems, tingling, tremors, weakness, others Musculoskeletal: denies: back pain, gout, joint pain, joint swelling, muscle pain, muscle stiffness, neck pain, others Integumetry: denies: bruises, change in color, change in hair/nails, dryness, laceration, lesions, lumps, rash, wounds, others Allergic/Immunocompromised: denies: Difficulty Healing, Frequent Infections, Hives, Itching, others Hematologic/Lymphatic: denies: anemia, blood clots, easy bleeding, easy bruising, swollen glands, others Endocrine: denies: excessive hunger, excessive sweating, excessive thirst, excessive urination, flushing, intolerance to cold, intolerance to heat, unexplained weight gain, unexplained weight loss, others Psychiatric: denies: anxiety, bipolar disorder, depression, hopeless, panic dis order, schizophrenia, sleepless, suicidal, others All Other Systems: Reviewed and Negative Physical Exam Exam Comments Diffuse upper quadrant tenderness General Appearance: No Apparent Distress, Normal HEENT: Normal ENT Inspection, Pharynx Normal, TMs Normal Neck: Full Range of Motion, Non-Tender, Normal, Normal Inspection Respiratory: Chest Non-Tender, Lungs Clear, No Accessory Muscle Use, No Respiratory Distress, Normal Breath Sounds Cardiovascular: No Edema, No JVD, No Murmur, No Gallop, Normal Peripheral Pulses, Regular Rate/Rhythm Breast Exam: Deferred Gastrointestinal: No Organomegaly, Non Tender, No Pulsatile Mass, Normal Bowel Sounds, Soft Genitalia: Deferred Pelvic: Deferred Rectal: Deferred Extremities: No calf tenderness, Normal capillary refill, Normal inspection, Normal range of motion, Non-tender, No pedal edema Musculoskeletal : Apperance: Normal Neurologic: Alert, repair welder II-XII nml as Tested, No Motor Deficits, Normal Affect, Normal Mood, No Sensory Deficits Cerebellar Function: Normal Reflexes: Normal Skin: Dry, Normal Color, Warm Lymphatic: No Adenopathy Was a procedure done? Was a procedure done?: No Differential Dx Considerations may include: SMALL-BOWEL OBSTRUCTION, GASTROENTERITIS, CONSTIPATION, UTI X-Ray, Labs, Meds, VS Vital Signs Date Time Temp Pulse Resp B/P (MAP) Pulse Ox O2 Delivery O2 Flow Rate FiO2 05/11/25 18:50 68 18 172/76 (108) 100 05/11/25 16:37 98.5 57 18 148/75 (99) 96 98.5 05/11/25 16:37 57 18 96 Room Air* 0 21 05/11/25 15:41 98.9 64 20 141/63 96 98.9 Lab Test 05/11/25 16:28 05/11/25 16:24 Range/Units White Blood Count 7.8 # 4.4-10.8 10^3/uL Red Blood Count 4.64 4.0-5.20 10^6/uL Hemoglobin 14.5 12.2-16.2 g/dL Hematocrit 42.8 36.0-46.0 % Mean Corpuscular Volume 92.1 80.0-100.0 fL Mean Corpuscular Hemoglobin 31.2 28.0-32.0 pg Mean Corpuscular Hemoglobin Concent 33.9 32.0-36.0 g/dL Red Cell Distribution Width 13.2 11.8-14.3 % Platelet Count 358 140-450 10^3/uL Mean Platelet Volume 6.6 L 6.9-10.8 fL Neutrophils (%) (Auto) 53.9 37.0-80.0 % Lymphocytes (%) (Auto) 38.5 10.0-50.0 % Monocytes (%) (Auto) 4.5 0.0-12.0 % Eosinophils (%) (Auto) 2.3 0.0-7.0 % Basophils (%) (Auto) 0.8 0.0-2.0 % Neutrophils # (Auto) 4.2 1.6-8.6 10 ^3/uL Lymphocytes # (Auto) 3.0 0.4-5.4 10 ^3/uL Monocytes # (Auto) 0.4 0-1.3 10 ^3/uL Eosinophils # (Auto) 0.2 0-0.8 10 ^3/uL Basophils # (Auto) 0.1 0-0.2 10 ^3/uL Nucleated Red Blood Cells 0.1 % Sodium Level 140 136-145 mmol/L Potassium Level 4.1 3.5-5.1 mmol/L Chloride Level 107 98-107 mmol/L Carbon Dioxide Level 22 20-31 mmol/L Anion Gap 11 5-15 Blood Urea Nitrogen 11 9-23 mg/dL Creatinine 0.55 0.550-1.02 mg/dL Glomerular Filtration Rate Calc 102 >90 mL/min BUN/Creatinine Ratio 20.0 10.0-20.0 Serum Glucose 106 74-106 mg/dL Calcium Level 9.2 8.7-10.4 mg/dL Total Bilirubin 0.8 0.2-1.0 mg/dL Aspartate Amino Transferase (AST) 38 13-40 U/L Alanine Aminotransferase (ALT) 32 7-40 U/L Alkaline Phosphatase 100 46-116 U/L Total Protein 7.2 5.7-8.2 g/dL Albumin 4.6 3.2-4.8 g/dL Lipase 35 12-53 U/L Urine Color Light-yellow Yellow Urine Clarity Clear Clear Urine pH 5.5 5.0-9.0 Urine Specific [place] 1.019 1.001-1.035 Urine Protein Negative Negative Urine Ketones Negative Negative Urine Blood 1+ H Negative /uL Urine Nitrite Negative Negative Urine Bilirubin Negative Negative Urine Urobilinogen Normal Negative mg/dL Urine Leukocyte Esterase Negative Negative /uL Urine RBC 2 0 - 4 /hpf Urine Microscopic WBC 2 0-5 /HPF Urine Squamous Epithelial Cells Few <5 /hpf Urine Bacteria None seen None Seen /hpf Urine Mucus Few None Seen Urine Glucose Normal Normal mg/dL Current Medications Medications (Trade) Dose Ordered Sig/Micheal Route Start Time Stop Time Status Last Admin Al Hydrox/Mg Hydrox/Simethicone (Maalox Plus) 30 ml ONCE ONCE PO 05/11/25 15:45 05/11/25 15:46 DC 05/11/25 16:31 Lidocaine HCl (Xylocaine 2% Viscous) 5 ml ONCE ONCE MT 05/11/25 15:45 05/11/25 15:46 DC 05/11/25 16:33 Ketorolac Tromethamine (Toradol Injection) 30 mg ONCE ONCE IV 05/11/25 17:00 05/11/25 17:01 DC 05/11/25 17:02 Acetaminophen/ Hydrocodone Bitart ([place] 5/325MG Tab) 1 tab ONCE ONCE PO 05/11/25 19:00 05/11/25 19:01 DC 05/11/25 19:13 X-Ray, Labs, Meds, VS Comment PATIENT TO BE ADMITTED FOR RETRACTABLE ABDOMINAL PAIN. IMAGING WAS REVIEWED BY THIS PROVIDER, THERE IS NO OBVIOUS PATHOLOGICAL OR ACUTE DISEASE PROCESS. PENDING RADIOLOGY REVIEW LABS WERE REVIEWED BY THIS PROVIDER, NO ABNORMALITIES VITAL SIGNS REVIEWED BY THIS PROVIDER, CLINICALLY STABLE PATIENT IS STILL REPORTING 10/10 PAIN AFTER TORADOL AND AFTER GI COCKTAIL PATIENT GIVEN NORCO 5 MG RECOMMEND GI CONSULT IN THE MORNING Time of 1ST Reevaluation: 16:15 Reevaluation 1ST: Unchanged Patient Education/Counseling: Diagnosis, Treatment, Prognosis Family Education/Counseling: No Family Present SEPSIS Sepsis Screen Physician Orders Ct Ab Pel Wo Con-No Oral Or Iv (05/11/25 15:40) Vital Signs Date Time Temp Pulse Resp B/P (MAP) Pulse Ox O2 Delivery O2 Flow Rate FiO2 05/11/25 18:50 68 18 172/76 (108) 100 05/11/25 16:37 98.5 57 18 148/75 (99) 96 98.5 05/11/25 16:37 57 18 96 Room Air* 0 21 05/11/25 15:41 98.9 64 20 141/63 96 98.9 Laboratory Tests Test 05/11/25 16:28 White Blood Count 7.8 10^3/uL (4.4-10.8) # Medications Medications Dose Ordered Sig/Micheal Route Start Time Stop Time Status Last Admin Dose Admin Acetaminophen/ Hydrocodone Bitart 1 tab ONCE ONCE PO 05/11/25 19:00 05/11/25 19:01 DC 05/11/25 19:13 Al Hydrox/Mg Hydrox/Simethicone 30 ml ONCE ONCE PO 05/11/25 15:45 05/11/25 15:46 DC 05/11/25 16:31 Ketorolac Tromethamine 30 mg ONCE ONCE IV 05/11/25 17:00 05/11/25 17:01 DC 05/11/25 17:02 Lidocaine HCl 5 ml ONCE ONCE MT 05/11/25 15:45 05/11/25 15:46 DC 05/11/25 16:33 Departure 1 Departure Time of Disposition: 19:42 Impression: Primary Impression: Acute abdominal pain Disposition: 09 ADMITTED INPATIENT Condition: Stable Discharged With: Self Critical Care Note Critical Care Time?: No Stability Stability form required: No I personally scribed for JEZ FRIAS ([email or web address]) on 05/11/25 at 15:45. Electronically submitted by Sadi Buenrostro ([email or web address]). JEZ FRIAS May 11, 2025 15:45
[2025-05-11] MEDS: MAALOX PLUS or MAALOX 30 ML PO ONE (16:31)
[2025-05-11] MEDS: LIDOCAINE VISCOUS 2% 15ML UD MT ONE (16:33)
[2025-05-11 16:37] VITALS: PULSE 57; RESP 18; TEMP 98.5; O2SAT 96
[2025-05-11 16:40] LABS: Hematocrit 42.8 % (36.0-46.0); Hemoglobin 14.5 g/dL (12.2-16.2); Mean Corpuscular Hemoglobin 31.2 pg (28.0-32.0); Mean Corpuscular Volume 92.1 fL (80.0-100.0); Nucleated Red Blood Cells % 0.1 %
[2025-05-11 16:55] LABS: Alanine Aminotransferase 32 U/L (7-40); Albumin 4.6 g/dL (3.2-4.8); Alkaline Phosphatase 100 U/L (46-116); Anion Gap 11 (5-15); BUN/Creatinine Ratio 20.0 (10.0-20.0); Blood Urea Nitrogen 11 mg/dL (9-23); Calcium 9.2 mg/dL (8.7-10.4); Carbon Dioxide 22 mmol/L (20-31); Chloride 107 mmol/L (98-107); Lipase 35 U/L (12-53); Potassium 4.1 mmol/L (3.5-5.1); Sodium 140 mmol/L (136-145); Total Protein 7.2 g/dL (5.7-8.2)
[2025-05-11 16:56] LABS: Bilirubin, Total 0.8 mg/dL (0.2-1.0)
[2025-05-11 16:59] LABS: Glucose 106 mg/dL (74-106)
[2025-05-11] MEDS: KETOROLAC TROMETH 30 MG/ML 1ML VIAL IV ONE (17:02)
--- NOTE | 2025-05-11 17:17 | DVH ---
COMPUTERIZED TOMOGRAPHY ABDOMEN AND PELVIS WITHOUT CONTRAST REASON FOR EXAM: abd pain COMPARISON: US PELVIC TRANSABDOMINAL ONLY on DOS: 01/26/24, CT ABD PELVIS WO CONTRAST on DOS: 09/02/22 TECHNIQUE: Spiral scans were acquired from the diaphragm to the symphysis pubis without intravenous c ontrast administration. 2-D coronal and sagittal reformatted images were provided. Radiation optimiza tion: All CT scans at this facility use at least one of these dose optimization techniques: Automated exposure control mA and/or kV adjustment per patient size (includes targeted exams where dose is mat ched to clinical indication) or iterative reconstruction. RADIATION DOSE: CTDI: 8.45 mGy DLP: 461.78 mGy-cm FINDINGS: There is mild dependent atelectasis dependent lower lobes. There is no pleural effusion. There is no pericardial effusion. The spleen is not enlarged. The liver is mildly enlarged at 17.9 cm in length. The liver is diffuse ly hypoattenuating. The gallbladder contains hyperdense material, likely vicarious excretion of contr ast from the study performed earlier on the same date. Evaluation of the abdominal organs is suboptim al in the absence of intravenous contrast. There is a 1.1 cm cystic density in the uncinate process o f the pancreas, likely a side branch IPMN. Unenhanced appearance of the pancreas is otherwise unremar kable. The adrenal glands are normal. The kidneys are similar in size. There is no hydronephrosis of either kidney. No renal, ureteral, or bladder calculus is identified. The urinary bladder is grossl y unremarkable. There is no abdominal aortic aneurysm. There is moderate atherosclerosis. No patholo gic lymphadenopathy is identified by size criteria. No free fluid is identified in the abdomen or pel vis. The uterus and ovaries are within normal limits. The colonic stool burden is small. There is a l inear metallic density within the cecum, likely a surgical clip. The appendix is not seen. There is no inflammatory change about the cecum. There is no pathologic distention of the small bowel. No acu te osseous abnormality is identified. IMPRESSION: No acute abnormality identified in the abdomen or pelvis. Hepatomegaly. The liver is diffusely hypoattenuating which may be secondary to steatosis or another d iffuse hepatic process. Correlate clinically and with liver function tests. There is a 1.1 cm cystic density in the uncinate process of the pancreas, likely a side branch IPMN. This can be further evaluated on a nonemergent basis with pancreas MRI if not performed previously.
[2025-05-11 17:21] LABS: Urine Protein, UAD Negative (Negative)
[2025-05-11 18:50] VITALS: BP 172/76; PULSE 68; RESP 18; O2SAT 100
[2025-05-11] MEDS: HYDROcodone-ACET 5/325MG TAB PO ONE (19:13)
== END 2025-05-11 21:15 | disposition left against medical advice (07) ==
LOC: ER 15:34 → EDBD 15:34 → ER 21:15
DX: R10.9 Unspecified abdominal pain (principal); Z79.84 Long term (current) use of oral hypoglycemic drugs; Z79.899 Other long term (current) drug therapy; Z91.048 Other nonmedicinal substance allergy status
CPT/HCPCS: 36415; 74176; 80053; 81001; 83690; 85025; 96374; 99285; J1885